=== PATIENT | female | born 2000 | race Caucasian/White ===

== ENCOUNTER 2021-12-14 08:19 | Outpatient (REF) | payer BC, SELFPAY ==
[2021-12-14 11:33] LABS: MANUAL DIFF FLAG NO
[2021-12-14 11:43] LABS: Basophils Absolute Auto 0.1 X10*3/uL (0.0-0.2); Basophils Percent Auto 0.7 % (0-2); Eosinophils Absolute Auto 0.3 X10*3/uL (0.0-0.4); Eosinophils Percent Auto 4.5 % (0-4); Hematocrit 40.8 % (37.0-47.0); Hemoglobin 13.7 g/dl (12.0-16.0); Imm Gran Abs Auto 0.02 X10*3/uL (0.00-0.03); Imm Gran Pct Auto 0.3 % (0.0-0.4); Lymphocytes Absolute Auto 2.2 X10*3/uL (1.2-4.9); Mean Corpuscular HGB Conc 33.6 g/dl (31.0-35.0); Mean Corpuscular Hemoglobin 30.4 pg (27.0-33.0); Mean Corpuscular Volume 90.5 fL (80.0-98.0); Mean Platelet Volume 10.7 fL (9.4-12.3); Monocytes Absolute Auto 0.7 X10*3/uL (0.1-1.2); Monocytes Percent Auto 9.1 % (2-11); Neutrophils Absolute Auto 3.9 x10*3/uL (2.0-8.3); Neutrophils Percent Auto 54.4 % (45-73); Platelet Count 337 X10*3/uL (160-400); Red Blood Count 4.51 X10*6/uL (4.20-5.50); Red Cell Distribution Width 12.1 % (11.0-16.0); White Blood Count 7.2 X10*3/uL (4.8-10.8)
[2021-12-14 12:11] LABS: TSH reflex Free T4 5.66 uIU/mL (0.32-4.0)
[2021-12-14 12:14] LABS: Alanine Aminotransferase 15 U/L (0-31); Alkaline Phosphatase 45 U/L (39-117); Anion Gap 12 (12-20); Aspartate Amino Transferase 18 U/L (5-31); Bilirubin Total 0.6 mg/dL (0.0-1.0); Blood Urea Nitrogen 15 mg/dL (9-16); Calcium 8.9 mg/dL (8.4-10.2); Carbon Dioxide 26 mmol/L (22-29); Chloride 106 mmol/L (96-108); Cholesterol 195 mg/dL; Estimated Glomerular Filt Rate > 60; Glucose Fasting 93 mg/dL (60-99); HDL Cholesterol 56 mg/dL; LDL Cholesterol Calculated 125 mg/dl; Sodium 140 mmol/L (135-145); Total Protein 6.9 g/dL (6.5-8.0); Triglycerides 71 mg/dL
[2021-12-14 12:57] LABS: Free T4 (Free Thyroxine) 0.97 ng/dL (0.71-1.85)
== END 2021-12-14 08:20 | disposition home or self-care (01) ==
LOC: HO.HMGCLDS 08:19
PROVIDERS: PCP Internal Medicine; Visit Provider Internal Medicine
DX: Z00.00 Encounter for general adult medical examination without abnormal findings (principal)
CPT/HCPCS: 36415; 80053; 80061; 84439; 84443; 85025

== ENCOUNTER 2022-02-22 09:29 | Outpatient (REF) | payer BC, SELFPAY ==
[2022-02-22 11:16] LABS: Syphilis Screen Nonreactive (Nonreactive)
[2022-02-22 11:27] LABS: HBc Num1 0.08 S/CO (0.00-0.79); Hepatitis B Core Antibody Nonreactive (Nonreactive); ~HepC Num1 0.15 S/CO (0.00-0.79); ~Hepatitis C Antibody Nonreactive (Nonreactive)
[2022-02-22 12:01] LABS: HIV AB/AG Nonreactive (Nonreactive); HIV Num 1 0.07 S/CO (0.00-0.99)
[2022-02-22 13:50] LABS: CT PCR NOT DETECTED (Not Detect.); NG PCR NOT DETECTED (Not Detect.)
== END 2022-02-22 09:30 | disposition home or self-care (01) ==
LOC: HO.LNP 09:29
PROVIDERS: Visit Provider Advanced Practice Midwife
DX: Z01.419 Encounter for gynecological examination (general) (routine) without abnormal findings (principal); Z11.3 Encounter for screening for infections with a predominantly sexual mode of transmission; Z20.2 Contact with and (suspected) exposure to infections with a predominantly sexual mode of transmission
CPT/HCPCS: 86704; 86780; 86803; 87389; 87491; 87591; 88142

== ENCOUNTER 2022-12-15 10:18 | Outpatient (AMB) | payer BC, SELFPAY ==
[2022-12-15 10:56] VITALS: BP 106/74; PULSE 70; O2SAT 95; BMI 28.3
--- NOTE | 2022-12-15 10:56 | MHC.PC.OV ---
Vital Signs 12/15/22 10:56 Height 5 ft 2 in Weight 155 lb BMI 28.3 BP 106/74 Blood Pressure Location Lt brachial Position Sitting Pulse 70 Pulse Source Pulse Oximeter Pulse Oximetry (%) 95 Oxygen Delivery Method Room Air Intake Visit Reasons: PE Intake Note: Pt is here today for PE. Allergies No Known Allergies Allergy (Verified 12/15/22 10:57) Medication List - Last Reconciled 12/15/22 by Bing Woods MD levonorgestrel-ethinyl estrad 0.1-20 mg-mcg (Sronyx) 1 tab PO DAILY Tobacco use date assessed: 12/15/22 Dental Screening Dental Screen Date: 12/15/22 Did you have a dental visit in the last 12 months?: Yes Did you have a dental problem in the last 6 months where you did not have access to dental care?: No Was dental information given to patient?: Patient has dentist HPI PE HPI Details Pt presents for PE. Pt c/o MACK on and off usually once a month. Patient works different shifts and occasionally does not get in the sleep. Patient used to have headaches at least weekly but they became less frequent since patient started taking oral contraceptive 3 months without an interruption PFSH Family History Other Adopted person Social History Household Members Other:: lives with parents, works for [employer] Housing: House Alcohol intake: current Alcohol intake frequency: 0-2 drinks per day Patient Tobacco Use Status: Never used Tobacco e-Cigarette/Vaping Use: Never Used service: No Current occupational status: employed Current occupation: [employer] Sexual orientation: Straight/Heterosexual Gender identity: Female Cognitive needs: No Hearing needs: No Vision needs: Yes Female Reproductive History Menstrual Age of Menarche: 10 Questionnaire PHQ-9 Over the last 2 weeks, how often have you been bothered by any of the following problems? 1. Little interest or pleasure in doing things: not at all 2. Feeling down, depressed, or hopeless: several days 3. Trouble falling or staying asleep, or sleeping too much: several days 4. Feeling tired or having little energy: several days 5. Poor appetite or overeating: not at all 6. Feeling bad about yourself - or that you are a failure or have let yourself or your family down: not at all 7. Trouble concentrating on things, such as reading the newspaper or watching television: not at all 8. Moving or speaking so slowly that other people could have noticed. Or the opposite - being so fidgety or restless that you have been moving around a lot more than usual: not at all 9. Thoughts that you would be better off or of hurting yourself in some way: not at all Total score: 3 Depression Screening Interpretation: Negative Source: Developed by Drs. Tim Michel, Sarah Meng, Justice Valerio and colleagues, with an educational raudel from [employer]. Thrive Questionnaire Date Thrive assessed: 12/15/22 I am a: Patient What is your living situation today?: I have a steady place to live Within the past 12 months, did the food you bought not last and you didn't have the money to get more?: Never true Within the past 12 months, did you worry whether your food would run out before you got money to buy more?: Never true Do you have trouble paying for medicines?: No Do you have trouble getting transportation to medical appointments?: No Do you have trouble paying your heating and electricity bill?: No Do you have trouble taking care of your child, family member or friend?: No Do you have trouble with day-to-day activities such as bathing, preparing meals, shopping, managing finances, etc.?: No Are you currently unemployed and looking for a job?: No Are you interested in more education?: No Please select the resources that you would like help with: None Currently or been in a relationship where the following occur: no concerns reported AUDIT C Alcohol Use Questionnaire (AUDIT-C) 1. How often do you have a drink containing alcohol?: Monthly or less 2. How many drinks containing alcohol do you have on a typical day when you are drinking?: 1 or 2 3. How often do you have six or more drinks on one occasion?: Never Total Score: 1 CHIQUIS-7 AMB Questionnaire CHIQUIS-7 Date CHIQUIS - 7 assessed: 12/15/22 Feeling nervous, anxious, or on edge: 2 = More than half the days Not being able to stop or control worryin = Several days Worrying too much about different things: 2 = More than half the days Trouble relaxin = Several days Being so restless that it is hard to sit still: 1 = Several days Becoming easily annoyed or irritable: 1 = Several days Feeling afraid as if something awful might happen: 0 = Not at all Total CHIQUIS-7 score (0-4 normal; 5-9 mild; 10-14 moderate; 15-21 severe): 8 Source: Developed by Drs. Tim Michel, Sarah Meng, Justice Valerio and colleagues, with an educational raudel from [employer]. Review of Systems Const All systems reviewed & are unremarkable except as noted in HPI and below Reports no additional complaints Eyes Reports no additional complaints ENT Reports no additional complaints Card Reports no additional complaints Resp Reports no additional complaints GI Reports no additional complaints Physical exam (Primary Care) Vital Signs: Last Vital Signs Pulse 70 12/15/22 10:56 BP 106/74 12/15/22 10:56 Pulse Ox 95 12/15/22 10:56 Oxygen Delivery Method Room Air 12/15/22 10:56 BMI result Body Mass Index 28.3 Tobacco/Smoking Status: Tobacco use Status Tobacco use date assessed 12/15/22 12/15/22 11:00 Patient Tobacco Use Status Never used Tobacco 12/15/22 11:00 e-Cigarette/Vaping Use Never Used 12/15/22 11:00 PHQ-9: PHQ-9 Score PHQ-9: Total score 3 12/15/22 11:14 Depression Screening Interpretation: Negative Thrive Assessment: Date of Thrive Assessment Date Thrive assessed 12/15/22 12/15/22 11:00 Currently or been in a relationship where the following occur: no concerns reported Const General: no acute distress HENMT Head: Yes normal to inspection Face and sinus: Yes normal facial exam Throat: Yes posterior oropharynx normal Eyes General: appearance normal, both eyes and all related structures Neck Neck: Yes no lymphadenopathy and Yes supple Resp Effort & Inspection: normal respiratory effort Auscultation: clear to auscultation bilaterally Cardio Rhythm: regular rhythm Heart sounds: S1 normal heart sound present and S2 normal heart sound present GI Inspection: Yes normal to inspection Palpation (GI): Soft to palpation Percussion: Yes normal to percussion Auscultation: normal bowel sounds Assessment and Plan Assessment & Plan (1) Hypothyroidism: Code(s): E03.9 - Hypothyroidism, unspecified Plan: check TSH/ and obtain thyroid us (2) Annual physical exam: Code(s): Z00.00 - Encounter for general adult medical examination without abnormal findings Plan: Well-balanced diet regular physical activity discussed with the patient (3) Thyroid antibody positive: Code(s): R76.8 - Other specified abnormal immunological findings in serum (4) Chronic headache: Code(s): R51.9 - Headache, unspecified; G89.29 - Other chronic pain Plan: Stress management discussed with the patient. She will try Imitrex. Return for physical in 1 year or p.r.n. Orders: Orders TSH reflex Free T4 Today E03.9 - Hypothyroidism, unspecified, Z00.00 - Encounter for general adult medical examination without abnormal findings Complete Blood Count Auto Diff Today E03.9 - Hypothyroidism, unspecified, Z00.00 - Encounter for general adult medical examination without abnormal findings Comprehensive [place]. Panel Fast Today E03.9 - Hypothyroidism, unspecified, Z00.00 - Encounter for general adult medical examination without abnormal findings Lipid Panel Today E03.9 - Hypothyroidism, unspecified, Z00.00 - Encounter for general adult medical examination without abnormal findings US thyroid Today E03.9 - Hypothyroidism, unspecified Medications: New sumatriptan succinate take 1 tab at onset of headache; if no relief may repeat 1 tab after at least 2 hrs; max = 4 tabs/24 hr PO 10 tabs 0RF Coding Level of Care Code Est Pt Prev Care 18-39y(54704) Diagnoses Hypothyroidism E03.9 Annual physical exam Z00.00 Thyroid antibody positive R76.8 Chronic headache R51.9; G89.29
== END 2022-12-15 11:30 | disposition home or self-care (01) ==
PROVIDERS: Visit Provider Internal Medicine
DX: E03.9 Hypothyroidism, unspecified (principal); Z00.00 Encounter for general adult medical examination without abnormal findings; R76.8 Other specified abnormal immunological findings in serum; R51.9 Headache, unspecified; G89.29 Other chronic pain
CPT/HCPCS: 99395

== ENCOUNTER 2022-12-15 11:31 | Outpatient (REF) | payer BC, SELFPAY ==
[2022-12-15 13:16] LABS: MANUAL DIFF FLAG NO
[2022-12-15 13:29] LABS: Basophils Percent Auto 0.5 % (0-2); Eosinophils Absolute Auto 0.3 X10*3/uL (0.0-0.4); Eosinophils Percent Auto 2.9 % (0-4); Hematocrit 42.6 % (37.0-47.0); Hemoglobin 14.1 g/dl (12.0-16.0); Imm Gran Abs Auto 0.03 X10*3/uL (0.00-0.03); Imm Gran Pct Auto 0.3 % (0.0-0.4); Lymphocytes Percent Auto 22.6 % (20-40); Mean Corpuscular HGB Conc 33.1 g/dl (31.0-35.0); Mean Corpuscular Hemoglobin 29.8 pg (27.0-33.0); Mean Corpuscular Volume 90.1 fL (80.0-98.0); Mean Platelet Volume 10.3 fL (9.4-12.3); Monocytes Absolute Auto 0.6 X10*3/uL (0.1-1.2); Monocytes Percent Auto 6.7 % (2-11); Neutrophils Absolute Auto 5.8 x10*3/uL (2.0-8.3); Platelet Count 372 X10*3/uL (160-400); Red Blood Count 4.73 X10*6/uL (4.20-5.50); Red Cell Distribution Width 12.2 % (11.0-16.0); White Blood Count 8.7 X10*3/uL (4.8-10.8)
[2022-12-15 13:49] LABS: Alanine Aminotransferase 12 U/L (0-31); Albumin Level 4.1 g/dL (3.5-5.0); Alkaline Phosphatase 46 U/L (39-117); Anion Gap 10 (12-20); Aspartate Amino Transferase 16 U/L (5-31); Bilirubin Total 0.7 mg/dL (0.0-1.0); Blood Urea Nitrogen 10 mg/dL (9-16); Calcium 9.8 mg/dL (8.4-10.2); Carbon Dioxide 25 mmol/L (22-29); Chloride 107 mmol/L (96-108); Cholesterol 214 mg/dL; Estimated Glomerular Filt Rate > 60; Glucose Fasting 77 mg/dL (60-99); HDL Cholesterol 54 mg/dL; LDL Cholesterol Calculated 141 mg/dl; Sodium 138 mmol/L (135-145); Total Protein 7.5 g/dL (6.5-8.0); Triglycerides 95 mg/dL
[2022-12-15 14:06] LABS: TSH reflex Free T4 3.51 uIU/mL (0.32-4.0)
== END 2022-12-15 11:32 | disposition home or self-care (01) ==
LOC: HO.HMGCLDS 11:31
PROVIDERS: PCP Internal Medicine; Visit Provider Internal Medicine
DX: Z00.00 Encounter for general adult medical examination without abnormal findings (principal); E03.9 Hypothyroidism, unspecified
CPT/HCPCS: 36415; 80053; 80061; 84443; 85025

== ENCOUNTER 2022-12-28 10:30 | Outpatient (REF) | payer BC, SELFPAY ==
--- NOTE | ~2022-12-28 | US_ITS ---
EXAMINATION: US THYROID CLINICAL INFORMATION: Hypothyroidism, unspecified. COMPARISON: None available. TECHNIQUE: Linear transducer grayscale and color Doppler examination with attention to the region of the thyroid. FINDINGS: SIZE: Measurements of the thyroid lobes and nodules are given in sagittal, anteroposterior and transverse dimensions respectively. Right Thyroid Lobe: 5.0 x 1.7 x 1.4 cm, volume 6.2 mL. Parenchyma: The gland echotexture is homogeneous. Thyroid vascularity is normal. Left Thyroid Lobe: 4.9 x 1.2 x 1.6 cm, volume 4.9 mL. Parenchyma: The gland echotexture is homogeneous. Thyroid vascularity is normal. Isthmus: 0.3 cm in maximum AP dimension. No focal thyroid nodule is seen. NODES: No lymphadenopathy is seen in the tissue surrounding the thyroid gland. US/US thyroid IMPRESSION: Unremarkable examination. ACR TI-RADS RECOMMENDATION REFERENCE: Ultrasound-guided fine-needle aspiration, followup ultrasound, no further follow up. * TR1 (0 point) and TR2 (2 points): No FNA or follow up. * TR3 (3 points): FNA if more than or equal to 2.5 cm in maximum dimension, followup ultrasound in 1, 3 and 5 years if 1.5 to 2.4 cm in maximum dimension. * TR4 (4-6 points): FNA if more than or equal to 1.5 cm in maximum dimension, followup ultrasound in 1, 2, 3 and 5 years if 1 to 1.4 cm in maximum dimension. * TR5 (more than or equal to 7 points): FNA if more than or equal to 1 cm in maximum dimension, followup ultrasound every year for 5 years if 0.5 to 0.9 cm in maximum dimension. * TR3, TR4 or TR5 nodules that are below the size threshold for followup receive no follow up.
== END 2022-12-28 10:31 | disposition home or self-care (01) ==
LOC: HO.HMGCX 10:30
PROVIDERS: PCP Internal Medicine; Visit Provider Internal Medicine
DX: E03.9 Hypothyroidism, unspecified (principal)
CPT/HCPCS: 76536

== ENCOUNTER 2023-03-15 08:20 | Outpatient (AMB) | payer BC, SELFPAY ==
--- NOTE | 2023-03-15 08:22 | MHC.OFFVIS ---
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 Helicopter Dispatcher: Helicopter Dispatcher Present ([place]) Allergies No Known Allergies Allergy (Verified 03/15/23 08:23) Is last menstrual period known: Yes Last menstrual period: 02/11/23 HPI HPI Comments History of Present Illness Details She is a premenopausal woman presenting for annual examination. 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 She tries to eat healthy and stays active with exercise. Currently on BC. She reports breakthrough bleeding x 2wks, then had her withdrawal bleed week. No late or missed pills. She has complaints of headaches, that she has been seeing her PCP about. She was prescribed Sumatriptan. She has not started the medication. She thinks that the headaches can be stress related and or come from her holding tension while sleeping. Denies any pelvic pain, dysuria, or discharge. 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 She denies vaginal itching and irritation. STI/STD screening offered; she accepts. Denies family history of breast, ovarian or colon cancer. Last pap smear 02/22/2023, was negative. She denies any contraindications to control such as: migraines with aura, history of DVT or pulmonary emboli, high blood pressure, liver disease, thrombolic disorders, Lupus, +DOMENIC, or smoking. [facility] Medical History Chronic headache Family History Other Adopted person Social History Household Members Other:: lives with parents, works for [employer] Housing: House Alcohol intake: current Alcohol intake frequency: 0-2 drinks per day Patient Tobacco Use Status: Never used Tobacco e-Cigarette/Vaping Use: Never Used service: No Current occupational status: employed Current occupation: [employer] Sexual orientation: Straight/Heterosexual Gender identity: Female Cognitive needs: No Hearing needs: No Vision needs: Yes Female Reproductive History Menstrual Age of Menarche: 10 Date of last menstrual period: 02/11/23 control method: pills Total pregnancies: 0 Date of last pap smear: 02/22/22 (neg) Review of Systems Const All systems reviewed & are unremarkable except as noted in HPI and below Reports as per HPI Eyes Reports no additional complaints ENT Reports no additional complaints Card Reports no additional complaints Resp Reports no additional complaints GI Reports as per HPI and Reports no additional complaints Reports as per HPI Musc Reports no additional complaints Skin/Breast Reports as per HPI Neuro Reports no additional complaints Psych Reports no additional complaints Endo Reports no additional complaints Royal/Lymph Reports no additional complaints Aller/Immun Reports no additional complaints Physical Exam Vital Signs: Last Vital Signs BP 106/66 03/15/23 08:23 BMI result Body Mass Index 30.2 Const General: cooperative, healthy appearing, no acute distress, well developed and alert Orientation/consciousness: patient oriented x3 HEENT Head: Yes normal to inspection Eyes General: appearance normal, both eyes and all related structures Neck Neck: Yes normal visual inspection Thyroid: Thyroid normal Chest Chest palpation & inspection: normal inspection of the chest and other (no puckering, dimpling, peau de orange, retraction, discharge, masses) Breast/axilla inspection: normal inspection of the breasts Breast/axilla palpation: normal palpation of the breasts Resp Effort & Inspection: normal respiratory effort GI Inspection: Yes normal to inspection Palpation (GI): Soft to palpation Rectal Exam - Female: deferred General: Yes bladder normal to palpation External Female Exam: normal external appearance and normal appearance of the urethra Speculum Exam - Vagina: normal appearance of the vagina, normal palpation and other (white discharge) Speculum Exam - Cervix: normal appearance of the cervix and normal palpation Bimanual exam- vagina & uterus: normal bimanual exam, normal palpation, uterine size normal, bladder normal to palpation, normal palpation and non-tender Bimanual Exam- Adnexa, other: no masses Skin General skin exam: no rashes or lesions noted Rashes: no rashes Neuro General: patient oriented x3 Cognition (Neuro): normal cognition Extrem General: Yes normal to inspection Psych Attitude: cooperative Thought process: Normal thought process present Assessment & Plan Assessment & Plan (1) Encounter for gynecological examination: Code(s): Z01.419 - Encounter for gynecological examination (general) (routine) without abnormal findings Plan: Discussed: Current recommendations for pap smears per ASCCP guidelines. Breast awareness and periodic self breast exams. Maintaining a healthy lifestyle including a well balanced diet and routine exercise. Encouraged condom use for STD and prevention. Discussed BTB, continue same pill for now and monitor bleeding, if reoccurs, call office for further evaluation. Warnings: go to ER if and loss of vision/blindness, severe headache, chest pain or difficulty breathing, severe abdominal pain, or any pain or swelling in an extremity. All of her questions and concerns were addressed to the best of my ability She will return in one year for AG. (2) Breakthrough bleeding: Code(s): N92.1 - Excessive and frequent menstruation with irregular cycle Plan: BV testing and GC/CT panel done today. Awaiting results; will treat accordingly if necessary. (3) Counseling for control, oral contraceptives: Code(s): Z30.09 - Encounter for other general counseling and advice on contraception Orders: Orders CT NG by PCR Today N92.1 - Excessive and frequent menstruation with irregular cycle Bacterial Vaginosis Panel Today N92.1 - Excessive and frequent menstruation with irregular cycle Medications: Refilled levonorgestrel-ethinyl estrad 0.1-20 mg-mcg (Sronyx) Take one pill daily, no placebo week, refill of previous rx 1 tab PO DAILY 112 tabs 4RF Coding Level of Care Code Est Pt Prev Care 18-39y(19358) Diagnoses Encounter for gynecological examination Z01.419 Breakthrough bleeding N92.1 Counseling for control, oral contraceptives Z30.09
[2023-03-15 08:23] VITALS: BP 106/66; BMI 30.2
== END 2023-03-15 08:56 | disposition home or self-care (01) ==
PROVIDERS: Visit Provider Advanced Practice Midwife
DX: Z01.419 Encounter for gynecological examination (general) (routine) without abnormal findings (principal); N92.1 Excessive and frequent menstruation with irregular cycle; Z30.09 Encounter for other general counseling and advice on contraception
CPT/HCPCS: 99395

== ENCOUNTER 2023-03-15 08:20 | Outpatient (REF) | payer BC, SELFPAY ==
[2023-03-15 14:07] LABS: CT PCR NOT DETECTED (Not Detect.); NG PCR NOT DETECTED (Not Detect.)
[2023-03-16 08:57] LABS: BV Int Neg Control Negative (Negative); BV Int Pos Control Positive (Positive)
== END 2023-03-15 08:21 | disposition home or self-care (01) ==
LOC: HO.LNP 08:20
PROVIDERS: Visit Provider Advanced Practice Midwife
DX: Z01.411 Encounter for gynecological examination (general) (routine) with abnormal findings (principal); N92.1 Excessive and frequent menstruation with irregular cycle; Z20.2 Contact with and (suspected) exposure to infections with a predominantly sexual mode of transmission
CPT/HCPCS: 0353U; 87480; 87510; 87660

== ENCOUNTER 2023-03-15 08:53 | Outpatient (REF) | payer BC, SELFPAY | END 2023-03-15 08:54 | disposition home or self-care (01) | LOC: HO.LAB 08:53 | PROVIDERS: Visit Provider Advanced Practice Midwife | DX: Z13.89 Encounter for screening for other disorder (principal) ==

== ENCOUNTER 2023-12-25 08:32 | Outpatient (AMB) | payer BC, SELFPAY ==
[2023-12-25 08:34] VITALS: BP 102/74; PULSE 87; O2SAT 99; BMI 29.3
--- NOTE | 2023-12-25 08:34 | A.OFFPC_ITS ---
Vital Signs 12/25/23 08:34 Height 5 ft 2 in Weight 160 lb BMI 29.3 BP 102/74 Blood Pressure Location Lt brachial Position Sitting Pulse 87 Pulse Source Pulse Oximeter Pulse Oximetry (%) 99 Oxygen Delivery Method Room Air Intake Visit Reasons: PE Intake Note: Pt is here today for PE. Allergies No Known Allergies Allergy (Verified 12/25/23 08:35) Medication List - Last Reconciled 12/25/23 by Bing Woods MD levonorgestrel-ethinyl estrad 0.1-20 mg-mcg (Sronyx) 1 tab PO DAILY sumatriptan succinate take 1 tab at onset of headache; if no relief may repeat 1 tab after at least 2 hrs; max = 4 tabs/24 hr PO Tobacco use date assessed: 12/25/23 Dental Screening Dental Screen Date: 12/25/23 Did you have a dental visit in the last 12 months?: Yes Did you have a dental problem in the last 6 months where you did not have access to dental care?: No Was dental information given to patient?: Patient has dentist HPI PE HPI Details Pt presents for PE. She reports chronic right buttock pain on and off for the last 2 years. She got engaged and is planning wedding in 2 years and bought a house with her fiance. Patient reports feeling more anxious but has good coping skills. [facility] Medical History Chronic headache Surgical History No pertinent past surgical history Family History Other Adopted person Social History Household Members Other:: lives with parents, works for [employer] Housing: House Alcohol intake: current Alcohol intake frequency: 0-2 drinks per day Patient Tobacco Use Status: Never used Tobacco e-Cigarette/Vaping Use: Never Used service: No Current occupational status: employed Current occupation: [employer] Sexual orientation: Straight/Heterosexual Gender identity: Female Cognitive needs: No Hearing needs: No Vision needs: Yes Female Reproductive History Menstrual Age of Menarche: 10 Questionnaire PHQ-9 Over the last 2 weeks, how often have you been bothered by any of the following problems? 1. Little interest or pleasure in doing things: not at all 2. Feeling down, depressed, or hopeless: several days 3. Trouble falling or staying asleep, or sleeping too much: several days 4. Feeling tired or having little energy: several days 5. Poor appetite or overeating: not at all 6. Feeling bad about yourself - or that you are a failure or have let yourself or your family down: not at all 7. Trouble concentrating on things, such as reading the newspaper or watching television: not at all 8. Moving or speaking so slowly that other people could have noticed. Or the opposite - being so fidgety or restless that you have been moving around a lot more than usual: not at all 9. Thoughts that you would be better off or of hurting yourself in some way: not at all Total score: 3 Depression Screening Interpretation: Negative Depression Screening Done: Yes 89315 - PHQ-9 Billing: Yes Source: Developed by Drs. Tim Michel, Sarah Meng, Justice Valerio and colleagues, with an educational raudel from [employer]. Thrive Questionnaire Date Thrive assessed: 12/25/23 I am a: Patient What is your living situation today?: I have a steady place to live Within the past 12 months, did the food you bought not last and you didn't have the money to get more?: Never true Within the past 12 months, did you worry whether your food would run out before you got money to buy more?: Never true Do you have trouble paying for medicines?: No Do you have trouble getting transportation to medical appointments?: No Do you have trouble paying your heating and electricity bill?: No Do you have trouble taking care of your child, family member or friend?: No Do you have trouble with day-to-day activities such as bathing, preparing meals, shopping, managing finances, etc.?: No Are you currently unemployed and looking for a job?: No Are you interested in more education?: No Please select the resources that you would like help with: None Currently or been in a relationship where the following occur: No concerns reported THRIVE Score: 0 AUDIT C Alcohol Use Questionnaire (AUDIT-C) 1. How often do you have a drink containing alcohol?: Monthly or less 2. How many drinks containing alcohol do you have on a typical day when you are drinking?: 1 or 2 Total Score: 1 CHIQUSI-7 AMB Questionnaire CHIQUIS-7 Date CHIQUIS - 7 assessed: 12/25/23 Feeling nervous, anxious, or on edge: 1 = Several days Not being able to stop or control worryin = Several days Worrying too much about different things: 1 = Several days Trouble relaxin = Several days Being so restless that it is hard to sit still: 1 = Several days Becoming easily annoyed or irritable: 1 = Several days Feeling afraid as if something awful might happen: 1 = Several days Total CHIQUIS-7 score (0-4 normal; 5-9 mild; 10-14 moderate; 15-21 severe): 7 Source: Developed by Drs. Tim Michel, Sarah Meng, Justice Valerio and colleagues, with an educational raudel from [employer]. CHIQUIS-7 Assessment Billing CHIQUIS-7 Assessment Tool: CHIQUIS-7 Assessment 11360 Review of Systems Const All systems reviewed & are unremarkable except as noted in HPI and below Reports no additional complaints Eyes Reports no additional complaints ENT Reports no additional complaints Card Reports no additional complaints Resp Reports no additional complaints GI Reports no additional complaints Reports no additional complaints Physical exam (Primary Care) Vital Signs: Last Vital Signs Pulse 87 12/25/23 08:34 BP 102/74 12/25/23 08:34 Pulse Ox 99 12/25/23 08:34 Oxygen Delivery Method Room Air 12/25/23 08:34 BMI result Body Mass Index 29.3 Tobacco/Smoking Status: Tobacco use Status Tobacco use date assessed 12/25/23 12/25/23 08:38 Patient Tobacco Use Status Never used Tobacco 12/25/23 08:38 e-Cigarette/Vaping Use Never Used 12/25/23 08:38 PHQ-9: PHQ-9 Score PHQ-9: Total score 3 12/25/23 09:16 Depression Screening Interpretation: Negative Thrive Assessment: Date of Thrive Assessment Date Thrive assessed 12/25/23 12/25/23 08:38 Currently or been in a relationship where the following occur: No concerns reported Const General: no acute distress HENMT Ears: hearing grossly normal bilaterally Face and sinus: Yes normal facial exam Mouth: Normal oral and palatal mucosa present Throat: Yes posterior oropharynx normal Eyes General: appearance normal, both eyes and all related structures Pupils: Equal, round and reactive pupils present Neck Neck: Yes no lymphadenopathy and Yes supple Resp Effort & Inspection: normal respiratory effort Auscultation: clear to auscultation bilaterally Cardio Rhythm: regular rhythm Heart sounds: S1 normal heart sound present and S2 normal heart sound present GI Inspection: Yes normal to inspection Palpation (GI): Soft to palpation Percussion: Yes normal to percussion Auscultation: normal bowel sounds Back/Spine/Pelvis Thoracic/Lumbar Spine: thoracic and lumbar spine normal to inspection, Lasegue's sign negative and No lumbar spinal tenderness Neuro Cranial nerves: Yes Equal, round and reactive pupils present Assessment and Plan Assessment & Plan (1) Annual physical exam: Code(s): Z00.00 - Encounter for general adult medical examination without abnormal findings Plan: Well-balanced diet regular physical activity discussed with the patient. She will have a fasting blood work today (2) Hypothyroidism: Code(s): E03.9 - Hypothyroidism, unspecified Plan: Monitor TSH for borderline hypothyroid (3) Hyperlipidemia: Code(s): E78.5 - Hyperlipidemia, unspecified Plan: Low-cholesterol diet discussed with the patient. (4) Piriformis syndrome of right side: Code(s): G57.01 - Lesion of sciatic nerve, right lower limb Plan: Stretching exercises given to the patient PT was recommended but patient declined. Orders: Orders Lipid Panel Today Z00.00 - Encounter for general adult medical examination with out abnormal findings TSH reflex Free T4 Today R76.8 - Other specified abnormal immunological findings in serum TSH reflex Free T4 1 Year E03.9 - Hypothyroidism, unspecified, E78.5 - Hyperlipidemia, unspecified, Z00.00 - Encounter for general adult medical examination without abnormal findings Lipid Panel 1 Year E03.9 - Hypothyroidism, unspecified, E78.5 - Hyperlipidemia, unspecified, Z00.00 - Encounter for general adult medical examination without abnormal findings Complete Blood Count Auto Diff 1 Year E03.9 - Hypothyroidism, unspecified, E78.5 - Hyperlipidemia, unspecified, Z00.00 - Encounter for general adult medical examination without abnormal findings UA w Microscopic 1 Year E03.9 - Hypothyroidism, unspecified, E78.5 - Hyperlipidemia, unspecified, Z00.00 - Encounter for general adult medical examination without abnormal findings Comprehensive [place]. Panel Fast Today Z00.00 - Encounter for general adult medical examination without abnormal findings Comprehensive [place]. Panel Fast 1 Year E03.9 - Hypothyroidism, unspecified, E78.5 - Hyperlipidemia, unspecified, Z00.00 - Encounter for general adult medical examination without abnormal findings Coding Level of Care Code Est Pt Prev Care 18-39y(62013) Diagnoses Annual physical exam Z00.00 Hypothyroidism E03.9 Hyperlipidemia E78.5 Piriformis syndrome of right side G57.01 Additional Codes CHIQUIS-7 Assessment Billing - CHIQUIS-7 Assessment Tool: CHIQUIS-7 Assessment 63626 ([id number])
== END 2023-12-25 09:32 | disposition home or self-care (01) ==
PROVIDERS: PCP Internal Medicine; Visit Provider Internal Medicine
DX: Z00.00 Encounter for general adult medical examination without abnormal findings (principal); E03.9 Hypothyroidism, unspecified; E78.5 Hyperlipidemia, unspecified; G57.01 Lesion of sciatic nerve, right lower limb
CPT/HCPCS: 99395

== ENCOUNTER 2023-12-25 09:34 | Outpatient (REF) | payer BC, SELFPAY ==
[2023-12-25 11:20] LABS: Alanine Aminotransferase 20 U/L (0-31); Albumin Level 4.2 g/dL (3.5-5.0); Alkaline Phosphatase 47 U/L (39-117); Anion Gap 13 (12-20); Aspartate Amino Transferase 19 U/L (5-31); Bilirubin Total 0.7 mg/dL (0.0-1.0); Blood Urea Nitrogen 15 mg/dL (9-16); Calcium 10.1 mg/dL (8.4-10.2); Carbon Dioxide 24 mmol/L (22-29); Chloride 106 mmol/L (96-108); Cholesterol 192 mg/dL (<200); Estimated Glomerular Filt Rate > 60; Glucose Fasting 84 mg/dL (60-99); HDL Cholesterol 57 mg/dL (>40); LDL Cholesterol Calculated 123 mg/dL (<100); Potassium 3.8 mmol/L (3.3-5.1); Sodium 139 mmol/L (135-145); Total Protein 7.3 g/dL (6.5-8.0); Triglycerides 60 mg/dL (<150)
== END 2023-12-25 09:35 | disposition home or self-care (01) ==
LOC: HO.HMGCLDS 09:34
PROVIDERS: PCP Internal Medicine; Visit Provider Internal Medicine
DX: Z00.00 Encounter for general adult medical examination without abnormal findings (principal); R76.8 Other specified abnormal immunological findings in serum
CPT/HCPCS: 36415; 80053; 80061; 84443

== ENCOUNTER 2024-03-25 08:49 | Outpatient (AMB) | payer BC, SELFPAY ==
[2024-03-25 09:04] VITALS: BP 108/76; BMI 30.6
--- NOTE | 2024-03-25 09:04 | MHC.OFFVIS ---
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 Doing well with concerns. Engaged, 01/2026. Doing well on her control no migraines with this brand. Does not take sumatriptan since the change. She denies any contraindications to control such as: migraines with aura, history of DVT or pulmonary emboli, high blood pressure, liver disease, thrombolic disorders, Lupus, +DOMENIC, breast cancer, or smoking. Regular monthly menses. Currently is sexually active. She denies vaginal itching and irritation. STI screening offered; she declines. She tries to eat healthy and stays active with exercise-walks. Patient is adopted. Last pap smear 2021, negative. [facility] Medical History Chronic headache Surgical History No pertinent past surgical history Family History Other Adopted person Social History Household Members Other:: lives with parents, works for [email or web address] Housing: House Alcohol intake: current Alcohol intake frequency: 0-2 drinks per day Patient Tobacco Use Status: Never used Tobacco e-Cigarette/Vaping Use: Never Used Patient : No service: No Current occupational status: employed Current occupation: [employer] Sexual orientation: Straight/Heterosexual Gender identity: Female Cognitive needs: No Hearing needs: No Vision needs: Yes Female Reproductive History Menstrual Age of Menarche: 10 Date of last menstrual period: 12/31/23 control method: pills Total pregnancies: 0 History of abnormal pap smear: No History of STI: No Review of Systems Const All systems reviewed & are unremarkable except as noted in HPI and below Reports as per HPI Eyes Reports no additional complaints ENT Reports no additional complaints Card Reports no additional complaints Resp Reports no additional complaints GI Reports as per HPI and Reports no additional complaints Reports as per HPI Musc Reports no additional complaints Skin/Breast Reports as per HPI Neuro Reports no additional complaints Psych Reports no additional complaints Endo Reports no additional complaints Royal/Lymph Reports no additional complaints Aller/Immun Reports no additional complaints Physical Exam Vital Signs: Last Vital Signs BP 108/76 03/25/24 09:04 BMI result Body Mass Index 30.6 Const General: cooperative, healthy appearing, no acute distress, well developed and alert Orientation/consciousness: patient oriented x3 HEENT Head: Yes normal to inspection Eyes General: appearance normal, both eyes and all related structures Neck Neck: Yes normal visual inspection Thyroid: Thyroid normal Chest Chest palpation & inspection: normal inspection of the chest and other (no puckering, dimpling, peau de orange, retraction, discharge, masses) Breast/axilla inspection: normal inspection of the breasts Breast/axilla palpation: normal palpation of the breasts Resp Effort & Inspection: normal respiratory effort GI Inspection: Yes normal to inspection Palpation (GI): Soft to palpation Rectal Exam - Female: deferred General: Yes bladder normal to palpation External Female Exam: normal external appearance and normal appearance of the urethra Speculum Exam - Vagina: normal appearance of the vagina, normal palpation and normal vaginal discharge Speculum Exam - Cervix: normal appearance of the cervix and normal palpation Bimanual exam- vagina & uterus: normal bimanual exam, normal palpation, uterine size normal, bladder normal to palpation, normal palpation and non-tender Bimanual Exam- Adnexa, other: no masses Skin General skin exam: no rashes or lesions noted Rashes: no rashes Neuro General: patient oriented x3 Cognition (Neuro): normal cognition Extrem General: Yes normal to inspection Psych Attitude: cooperative Thought process: Normal thought process present Assessment & Plan Assessment & Plan (1) Encounter for gynecological examination: Code(s): Z01.419 - Encounter for gynecological examination (general) (routine) without abnormal findings Category: Medical Plan Discussed: Current recommendations for pap smears per ASCCP guidelines. Breast awareness and periodic breast exams. Maintain a healthy lifestyle including a well balanced diet and routine exercise. Use condoms for STI and prevention. control hormone use warnings: go to ER if and loss of vision, blindness, severe headache, chest pain or difficulty breathing, severe abdominal pain, or any pain or swelling in an extremity. Patient verbalizes understanding and agrees to the plan of care. She was given opportunity to ask questions and all questions were answered to the best of my ability. 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 This note is constructed using voice recognition software. While every effort has been made to ensure accuracy, knitted goods shaper errors may have been included. Medications: Refilled levonorgestrel-ethinyl estrad 0.1-20 mg-mcg (Sronyx) Take one pill daily, no placebo week, refill of previous rx 1 tab PO DAILY 112 tabs 4RF Discontinued sumatriptan succinate Discontinued Reason: Patient Completed Course take 1 tab at onset of headache; if no relief may repeat 1 tab after at least 2 hrs; max = 4 tabs/24 hr PO 10 tabs 0RF Coding Level of Care Code Est Pt Prev Care 18-39y(85911) Diagnoses Encounter for gynecological examination Z01.419
== END 2024-03-25 10:03 | disposition home or self-care (01) ==
PROVIDERS: PCP Internal Medicine; Visit Provider Advanced Practice Midwife
DX: Z01.419 Encounter for gynecological examination (general) (routine) without abnormal findings (principal)
CPT/HCPCS: 99395

== ENCOUNTER 2024-04-03 13:46 | Outpatient (AMB) | payer BC, SELFPAY ==
--- NOTE | 2024-04-03 13:56 | AM.OFFWIN_ITS ---
Intake Vital Signs 04/03/24 13:59 Height 5 ft 2 in Weight 166 lb BMI 30.4 BP 122/78 Blood Pressure Location Rt brachial Position Sitting Pulse 82 Pulse Source Pulse Oximeter Pulse Oximetry (%) 99 Oxygen Delivery Method Room Air Intake Visit Reasons: EP-swollen & red face, rt foot cyst pinky toe Intake Note: Patient here for left foot swelling, red and has a bump in between pinky toe. She has been dealing w/Athletes foot for the past year now. Patient Tobacco Use Status: Never used Tobacco Allergies No Known Allergies Allergy (Verified 04/03/24 14:02) Do you need a note to return to daycare/school/sports/work: Yes HPI HPI Comments History of Present Illness Details History of Present Illness The patient is a 24-year-old female presenting with a blister with pus formation on her foot. The patient states that she noticed the blister last night, and by this morning, it had increased in size significantly. The surrounding area is erythematous, and she reports swelling of the toes, particularly noticeable on the top of the foot, causing significant pain upon walking. The patient has a history of recurrent Athlete's Foot, typically characterized by a small crack between the toes which she usually manages with topical antifungal ointment containing a 1% antifungal agent. She mentions applying the ointment twice daily for the past two days since these symptoms began. The sudden onset severity and characteristics of the blister differ from her past experiences with Athlete's Foot. There is no reported history of recent trauma or the use of new shoes. 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 Physical Exam General: Cooperative, healthy appearing, comfortable, no acute distress and well developed Orientation: Patient oriented x3 Limitations: No limitations Head: Normal to inspection Ears: Hearing grossly normal bilaterally Nose: Normal Nxternal nose present Face and sinus: ormal facial exam Eyes: Appearance normal, both eyes and all related structures Neck: Normal visual inspection and Yes full ROM Respiratory: Normal respiratory effort and able to speak in complete sentences. Clear to auscultation bilaterally Cardiovascular: Regular rate and rhythm. Normal S1 and S2 GI: Normal to inspection. Soft to palpation and nontender Skin: Redness on the top of the foot, toes swollen, blister with pus on the foot Neuro: Patient oriented x3 Extremities: Swollen foot with blister containing pus, redness, and tenderness noted [facility] Medical History Chronic headache Surgical History No pertinent past surgical history Family History Other Adopted person Social History Household Members Other:: lives with parents, works for [employer] Housing: House Alcohol intake: current Alcohol intake frequency: 0-2 drinks per day Patient Tobacco Use Status: Never used Tobacco e-Cigarette/Vaping Use: Never Used service: No Current occupational status: employed Current occupation: [email or web address] Sexual orientation: Straight/Heterosexual Gender identity: Female Cognitive needs: No Hearing needs: No Vision needs: Yes Female Reproductive History Menstrual Age of Menarche: 10 Review of Systems Const All systems reviewed & are unremarkable except as noted in HPI and below Physical Exam Vital Signs: Last Vital Signs Pulse 82 04/03/24 13:59 BP 122/78 04/03/24 13:59 Pulse Ox 99 04/03/24 13:59 Oxygen Delivery Method Room Air 04/03/24 13:59 BMI result Body Mass Index 30.4 Assessment & Plan Assessment & Plan (1) Infection of toe: Code(s): L08.9 - Local infection of the skin and subcutaneous tissue, unspecified Plan: Keflex sent to pharmacy. Recommended to follow up if no improvement in symptoms. Patient was informed and verbally consented to the use of an ambient scribe for clinic note documentation during this visit. (2) Tinea pedis, left: Code(s): B35.3 - Tinea pedis Plan: The plan is to continue topical antifungal therapy. Re-evaluate if symptoms persist or worsen, as further intervention may be needed. Coding Level of Care Code Est Pt Level 3 (36900) Diagnoses Infection of toe L08.9 Tinea pedis, left B35.3
[2024-04-03 13:59] VITALS: BP 122/78; PULSE 82; O2SAT 99; BMI 30.4
== END 2024-04-03 14:38 | disposition home or self-care (01) ==
PROVIDERS: PCP Internal Medicine; Visit Provider Physician Assistant
DX: L08.9 Local infection of the skin and subcutaneous tissue, unspecified (principal); B35.3 Tinea pedis

== ENCOUNTER 2024-06-23 14:03 | Outpatient (AMB) | payer BC, SELFPAY ==
--- NOTE | 2024-06-23 14:04 | MHC.PC.OV ---
Vital Signs 06/23/24 14:05 Height 5 ft 2 in Weight 169 lb BMI 30.9 BP 124/80 Blood Pressure Location Lt brachial Position Sitting Respiration 18 Pulse 94 Pulse Source Pulse Oximeter Temp 98.3 F Temp Source Oral Pulse Oximetry (%) 98 Oxygen Delivery Method Room Air Intake Visit Reasons: foot infection Intake Note: Pt is here today for a sick visit. Pt states that she was seen in a walk in back in March for L foot infection she was on 2 antibiotics already since then. Allergies No Known Allergies Allergy (Verified 06/23/24 14:11) Medication List - Last Reconciled 06/23/24 by Bing Woods MD ketoconazole 400 mg (2 x 200 mg) PO DAILY ketoconazole 2% 1 appl topical BID levonorgestrel-ethinyl estrad 0.1-20 mg-mcg (Sronyx) 1 tab PO DAILY Tobacco use date assessed: 06/23/24 Dental Screening Dental Screen Date: 06/23/24 Did you have a dental visit in the last 12 months?: Yes Did you have a dental problem in the last 6 months where you did not have access to dental care?: No Was dental information given to patient?: Patient has dentist HPI foot infection HPI Details Patient presents complaining of recurrent infection between the 5th and the 4th toe on the left foot. She has been wearing sneakers to work and reports her feet sweating a lot. Patient has been using [id number] antifungal powder and topical cream with only temporary relief. She was treated for left foot cellulitis 2 months ago. [facility] Medical History Chronic headache Surgical History No pertinent past surgical history Family History Other Adopted person Social History Household Members Other:: lives with parents, works for [employer] Housing: House Alcohol intake: current Alcohol intake frequency: 0-2 drinks per day Patient Tobacco Use Status: Never used Tobacco e-Cigarette/Vaping Use: Never Used service: No Current occupational status: employed Current occupation: [employer] Sexual orientation: Straight/Heterosexual Gender identity: Female Cognitive needs: No Hearing needs: No Vision needs: Yes Female Reproductive History Menstrual Age of Menarche: 10 Questionnaire PHQ-9 Over the last 2 weeks, how often have you been bothered by any of the following problems? 1. Little interest or pleasure in doing things: not at all 2. Feeling down, depressed, or hopeless: not at all 3. Trouble falling or staying asleep, or sleeping too much: not at all 4. Feeling tired or having little energy: not at all 5. Poor appetite or overeating: not at all 6. Feeling bad about yourself - or that you are a failure or have let yourself or your family down: not at all 7. Trouble concentrating on things, such as reading the newspaper or watching television: not at all 8. Moving or speaking so slowly that other people could have noticed. Or the opposite - being so fidgety or restless that you have been moving around a lot more than usual: not at all 9. Thoughts that you would be better off or of hurting yourself in some way: not at all Total score: 0 Depression Screening Interpretation: Negative Depression Screening Done: Yes 10645 - PHQ-9 Billing: Yes Source: Developed by Drs. Tim Michel, Sarah Meng, Justice Valerio and colleagues, with an educational raudel from [employer]. Thrive Questionnaire Date Thrive assessed: 06/23/24 I am a: Patient What is your living situation today?: I have a steady place to live Within the past 12 months, did the food you bought not last and you didn't have the money to get more?: Never true Within the past 12 months, did you worry whether your food would run out before you got money to buy more?: Never true Do you have trouble paying for medicines?: No Do you have trouble getting transportation to medical appointments?: No Do you have trouble paying your heating and electricity bill?: No Do you have trouble taking care of your child, family member or friend?: No Do you have trouble with day-to-day activities such as bathing, preparing meals, shopping, managing finances, etc.?: No Are you currently unemployed and looking for a job?: No Are you interested in more education?: No Please select the resources that you would like help with: None Currently or been in a relationship where the following occur: No concerns reported THRIVE Score: 0 AUDIT C Alcohol Use Questionnaire (AUDIT-C) 1. How often do you have a drink containing alcohol?: 2-3 times a week 2. How many drinks containing alcohol do you have on a typical day when you are drinking?: 1 or 2 3. How often do you have six or more drinks on one occasion?: Less than monthly Total Score: 4 CHIQUIS-7 AMB Questionnaire CHIQUIS-7 Date CHIQUIS - 7 assessed: 06/23/24 Feeling nervous, anxious, or on edge: 1 = Several days Not being able to stop or control worryin = Not at all Worrying too much about different things: 1 = Several days Trouble relaxin = Several days Being so restless that it is hard to sit still: 0 = Not at all Becoming easily annoyed or irritable: 1 = Several days Feeling afraid as if something awful might happen: 0 = Not at all Total CHIQUIS-7 score (0-4 normal; 5-9 mild; 10-14 moderate; 15-21 severe): 4 Source: Developed by Drs. Tim Michel, Sarah Meng, Justice Valerio and colleagues, with an educational raudel from [employer]. CHIQUIS-7 Assessment Billing CHIQUIS-7 Assessment Tool: CHIQUIS-7 Assessment 05832 Review of Systems Const All systems reviewed & are unremarkable except as noted in HPI and below Eyes Reports no additional complaints ENT Reports no additional complaints Card Reports no additional complaints Resp Reports no additional complaints GI Reports no additional complaints Reports no additional complaints Physical exam (Primary Care) Vital Signs: Last Vital Signs Temp 98.3 F 06/23/24 14:05 Pulse 94 06/23/24 14:05 Resp 18 06/23/24 14:05 BP 124/80 06/23/24 14:05 Pulse Ox 98 06/23/24 14:05 Oxygen Delivery Method Room Air 06/23/24 14:05 BMI result Body Mass Index 30.9 Tobacco/Smoking Status: Tobacco use Status Tobacco use date assessed 06/23/24 06/23/24 14:11 Patient Tobacco Use Status Never used Tobacco 06/23/24 14:11 e-Cigarette/Vaping Use Never Used 06/23/24 14:11 PHQ-9: PHQ-9 Score PHQ-9: Total score 0 06/23/24 14:11 Depression Screening Interpretation: Negative Thrive Assessment: Date of Thrive Assessment Date Thrive assessed 06/23/24 06/23/24 14:11 Currently or been in a relationship where the following occur: No concerns reported Const General: no acute distress HENMT Head: Yes normal to inspection Resp Effort & Inspection: normal respiratory effort Auscultation: clear to auscultation bilaterally Cardio Rhythm: regular rhythm Heart sounds: S1 normal heart sound present and S2 normal heart sound present Extrem Other: There is erythema with scaling and vesicles in the skin folds between left 5th and 4th toes Coding Level of Care Code Est Pt Level 3 (13609) Diagnoses Tinea pedis, left B35.3 Additional Codes CHIQUIS-7 Assessment Billing - CHIQUIS-7 Assessment Tool: CHIQUIS-7 Assessment 00196 ([id number]) PHQ-9 - 80059 - PHQ-9 Billing: Yes ([id number]) Assessment & Plan Assessment & Plan (1) Tinea pedis, left: Code(s): B35.3 - Tinea pedis Category: Medical Plan: Ketoconazole 400 mg daily for 1 week is prescribed and ketoconazole cream to use at least twice a day and keep the area dry discussed with the patient. Medications: New ketoconazole 400 mg (2 x 200 mg) PO DAILY 14 tabs 0RF ketoconazole 2% 1 appl topical BID 30 grams 0RF
[2024-06-23 14:05] VITALS: BP 124/80; PULSE 94; RESP 18; TEMP 36.8; O2SAT 98; BMI 30.9
== END 2024-06-23 14:59 | disposition home or self-care (01) ==
PROVIDERS: PCP Internal Medicine; Visit Provider Internal Medicine
DX: B35.3 Tinea pedis (principal)

== ENCOUNTER → 2024-06-23 14:03 | Outpatient (BNVA) | payer BC, SELFPAY | PROVIDERS: PCP Internal Medicine; Visit Provider Internal Medicine | DX: B35.3 Tinea pedis (principal) | CPT/HCPCS: 96127 ==

== ENCOUNTER 2024-07-18 12:46 | Outpatient (REF) | payer BC, SELFPAY ==
--- NOTE | ~2024-07-18 | XR_ITS ---
EXAMINATION: X-RAY LUMBAR SPINE 4 VIEWS. CLINICAL INFORMATION: Low back pain. TECHNIQUE: 4 views of the lumbar spine. COMPARISON: None FINDINGS: No acute cortical disruption or malalignment. No lytic or blastic lesions. Rudimentary ribs at T12. XR/XR lumbar spine 4V min IMPRESSION: No acute fracture or listhesis. No gross spondylolisthesis/spondylolysis. Electronically signed by: Lit Rivas MD 07/21/2024 10:40 AM EDT
--- NOTE | ~2024-07-18 | XR_ITS ---
EXAMINATION: XR SACROILIAC JOINTS CLINICAL INFORMATION: Low back pain COMPARISON: None available. TECHNIQUE: 3 views of the sacroiliac joints FINDINGS: Bones and soft tissues are normal. No fracture. Alignment is anatomic. Sacroiliac joint spaces are well-maintained without erosions or surrounding sclerosis. XR/XR sacroiliac joint min 3V IMPRESSION: Normal sacroiliac joints. Electronically signed by: Lit Rivas MD 07/21/2024 10:33 AM EDT
== END 2024-07-18 12:47 | disposition home or self-care (01) ==
LOC: HO.HMGCX 12:46
PROVIDERS: PCP Internal Medicine; Visit Provider Internal Medicine
DX: M54.30 Sciatica, unspecified side (principal)
CPT/HCPCS: 72110; 72202

== ENCOUNTER 2024-07-18 12:46 | Outpatient (AMB) | payer BC, SELFPAY ==
[2024-07-18 12:49] VITALS: BP 120/78; PULSE 93; RESP 18; TEMP 37.1; O2SAT 99; BMI 30.7
--- NOTE | 2024-07-18 12:49 | MHC.PC.OV ---
Vital Signs 07/18/24 12:49 Height 5 ft 2 in Weight 168 lb BMI 30.7 BP 120/78 Blood Pressure Location Lt brachial Position Sitting Respiration 18 Pulse 93 Pulse Source Pulse Oximeter Temp 98.8 F Temp Source Oral Pulse Oximetry (%) 99 Oxygen Delivery Method Room Air Intake Visit Reasons: lower back and hip pain Intake Note: Pt is here today for a sick visit. Pt c/o lower back pain and R hip pain and sometimes her L hip. Pt states that it has been going on for a while now. Pt states that she has xray doen of her back that was ordered by her chiropractor. Allergies No Known Allergies Allergy (Verified 07/18/24 12:49) Medication List - Last Reconciled 07/18/24 by Bing Woods MD ketoconazole 400 mg (2 x 200 mg) PO DAILY ketoconazole 2% 1 appl topical BID levonorgestrel-ethinyl estrad 0.1-20 mg-mcg (Sronyx) 1 tab PO DAILY Tobacco use date assessed: 07/18/24 Dental Screening Dental Screen Date: 06/23/24 HPI lower back and hip pain HPI Details Pt presents complaining of chronic R side lower back pressure like pain radiating to R posterior leg for 2 years getting worse over last 2 months, becoming more constant, usually worse at the end of the day. The pain improves with resting. Patient denies any weakness or numbness in extremities, change in the bowel bladder function. 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 Pt has been going to chiropractor for one year without significant improvement after the treatment. [facility] Medical History Chronic headache Surgical History No pertinent past surgical history Family History Other Adopted person Social History Household Members Other:: lives with parents, works for [employer] Housing: House Alcohol intake: current Alcohol intake frequency: 0-2 drinks per day Patient Tobacco Use Status: Never used Tobacco e-Cigarette/Vaping Use: Never Used service: No Current occupational status: employed Current occupation: [employer] Sexual orientation: Straight/Heterosexual Gender identity: Female Cognitive needs: No Hearing needs: No Vision needs: Yes Female Reproductive History Menstrual Age of Menarche: 10 Questionnaire Thrive Questionnaire Date Thrive assessed: 06/23/24 I am a: Patient What is your living situation today?: I have a steady place to live Within the past 12 months, did the food you bought not last and you didn't have the money to get more?: Never true Within the past 12 months, did you worry whether your food would run out before you got money to buy more?: Never true Do you have trouble paying for medicines?: No Do you have trouble getting transportation to medical appointments?: No Do you have trouble paying your heating and electricity bill?: No Do you have trouble taking care of your child, family member or friend?: No Do you have trouble with day-to-day activities such as bathing, preparing meals, shopping, managing finances, etc.?: No Are you currently unemployed and looking for a job?: No Are you interested in more education?: No Please select the resources that you would like help with: None Currently or been in a relationship where the following occur: No concerns reported THRIVE Score: 0 CHIQUIS-7 AMB Questionnaire CHIQUIS-7 Date CHIQUIS - 7 assessed: 06/23/24 Source: Developed by Drs. Tim Michel, Sarah Meng, Justice Valerio and colleagues, with an educational raduel from [employer]. Review of Systems Const All systems reviewed & are unremarkable except as noted in HPI and below Eyes Reports no additional complaints ENT Reports no additional complaints Card Reports no additional complaints Resp Reports no additional complaints GI Reports no additional complaints Reports no additional complaints Physical exam (Primary Care) Vital Signs: Last Vital Signs Temp 98.8 F 07/18/24 12:49 Pulse 93 07/18/24 12:49 Resp 18 07/18/24 12:49 BP 120/78 07/18/24 12:49 Pulse Ox 99 07/18/24 12:49 Oxygen Delivery Method Room Air 07/18/24 12:49 BMI result Body Mass Index 30.7 Tobacco/Smoking Status: Tobacco use Status Tobacco use date assessed 07/18/24 07/18/24 13:01 Patient Tobacco Use Status Never used Tobacco 07/18/24 12:49 e-Cigarette/Vaping Use Never Used 07/18/24 12:49 Thrive Assessment: Date of Thrive Assessment Date Thrive assessed 06/23/24 07/18/24 12:49 Currently or been in a relationship where the following occur: No concerns reported Const General: no acute distress Eyes General: appearance normal, both eyes and all related structures Resp Effort & Inspection: normal respiratory effort Auscultation: clear to auscultation bilaterally Cardio Rhythm: regular rhythm Heart sounds: S1 normal heart sound present and S2 normal heart sound present GI Inspection: Yes normal to inspection Palpation (GI): Soft to palpation Percussion: Yes normal to percussion Auscultation: normal bowel sounds Back/Spine/Pelvis Other: No spinal paraspinal tenderness, there is reproducible tenderness over right SI joint and right mid buttock, straight leg rising 90 degrees bilaterally, motor strength 5/5 deep tendon reflexes 2+ bilaterally Coding Level of Care Code Est Pt Level 3 (92366) Diagnoses Sciatica M54.30 Assessment & Plan Assessment & Plan (1) Sciatica: Code(s): M54.30 - Sciatica, unspecified side Category: Medical Plan: Obtain x-rays of lumbar spine and SI joints anf refer to physical therapy. Patient declined medication. She will follow-up in 1 month after PT Orders: Orders XR lumbar spine 4V min Today M54.30 - Sciatica, unspecified side PT Evaluation and Treatment Today M54.30 - Sciatica, unspecified side XR sacroiliac joint min 3V Today M54.30 - Sciatica, unspecified side
== END 2024-07-18 14:59 | disposition home or self-care (01) ==
LOC: HO.HMCC 12:46
PROVIDERS: PCP Internal Medicine; Visit Provider Internal Medicine
DX: M54.30 Sciatica, unspecified side (principal)

== ENCOUNTER → 2024-07-18 13:52 | Outpatient (BNV) | payer BC, SELFPAY | PROVIDERS: PCP Internal Medicine; Visit Provider Radiology Diagnostic Radiology | DX: M54.50 Low back pain, unspecified (principal) | CPT/HCPCS: 72110; 72202 ==

== ENCOUNTER 2024-08-27 11:04 | Outpatient (AMB) | payer BC, SELFPAY ==
--- NOTE | 2024-08-27 11:15 | MHC.PC.OV ---
Vital Signs 08/27/24 11:20 Height 5 ft 2 in Weight 164 lb BMI 30.0 BP 108/70 Blood Pressure Location Lt brachial Position Sitting Respiration 18 Pulse 78 Pulse Source Pulse Oximeter Temp 98.7 F Temp Source Oral Pulse Oximetry (%) 99 Oxygen Delivery Method Room Air Intake Visit Reasons: 1 month follow up Intake Note: Pt is here today for 1 month follow up visit. Allergies No Known Allergies Allergy (Verified 08/27/24 11:22) Medication List - Last Reconciled 08/27/24 by Bing Woods MD levonorgestrel-ethinyl estrad 0.1-20 mg-mcg (Sronyx) 1 tab PO DAILY Tobacco use date assessed: 08/27/24 Dental Screening Dental Screen Date: 06/23/24 HPI 1 month follow up HPI Details Patient presents for the follow-up of chronic lower back pain. She has started physical therapy and is feeling better. She has been more careful when lifting heavy objects at work. PFSH Medical History Chronic headache Surgical History No pertinent past surgical history Family History Other Adopted person Social History Household Members Other:: lives with parents, works for [employer] Housing: House Alcohol intake: current Alcohol intake frequency: 0-2 drinks per day Patient Tobacco Use Status: Never used Tobacco e-Cigarette/Vaping Use: Never Used service: No Current occupational status: employed Current occupation: [employer] Sexual orientation: Straight/Heterosexual Gender identity: Female Cognitive needs: No Hearing needs: No Vision needs: Yes Female Reproductive History Menstrual Age of Menarche: 10 Questionnaire Thrive Questionnaire Date Thrive assessed: 06/23/24 I am a: Patient What is your living situation today?: I have a steady place to live Within the past 12 months, did the food you bought not last and you didn't have the money to get more?: Never true Within the past 12 months, did you worry whether your food would run out before you got money to buy more?: Never true Do you have trouble paying for medicines?: No Do you have trouble getting transportation to medical appointments?: No Do you have trouble paying your heating and electricity bill?: No Do you have trouble taking care of your child, family member or friend?: No Do you have trouble with day-to-day activities such as bathing, preparing meals, shopping, managing finances, etc.?: No Are you currently unemployed and looking for a job?: No Are you interested in more education?: No Please select the resources that you would like help with: None Currently or been in a relationship where the following occur: No concerns reported THRIVE Score: 0 CHIQUIS-7 AMB Questionnaire CHIQUIS-7 Date CHIQUIS - 7 assessed: 06/23/24 Source: Developed by Drs. Tim Michel, Sarah Meng, Justice Valerio and colleagues, with an educational raudel from [employer]. Review of Systems Const All systems reviewed & are unremarkable except as noted in HPI and below Eyes Reports no additional complaints ENT Reports no additional complaints Card Reports no additional complaints Resp Reports no additional complaints GI Reports no additional complaints Reports no additional complaints Physical exam (Primary Care) Vital Signs: Last Vital Signs Temp 98.7 F 08/27/24 11:20 Pulse 78 08/27/24 11:20 Resp 18 08/27/24 11:20 BP 108/70 08/27/24 11:20 Pulse Ox 99 08/27/24 11:20 Oxygen Delivery Method Room Air 08/27/24 11:20 BMI result Body Mass Index 30.0 Tobacco/Smoking Status: Tobacco use Status Tobacco use date assessed 08/27/24 08/27/24 11:25 Patient Tobacco Use Status Never used Tobacco 08/27/24 11:15 e-Cigarette/Vaping Use Never Used 08/27/24 11:15 Thrive Assessment: Date of Thrive Assessment Date Thrive assessed 06/23/24 08/27/24 11:15 Currently or been in a relationship where the following occur: No concerns reported Const General: no acute distress HENMT Head: Yes normal to inspection Eyes General: appearance normal, both eyes and all related structures Resp Effort & Inspection: normal respiratory effort Auscultation: clear to auscultation bilaterally Cardio Rhythm: regular rhythm Heart sounds: S1 normal heart sound present and S2 normal heart sound present Back/Spine/Pelvis Thoracic/Lumbar Spine: thoracic and lumbar spine normal to inspection and straight leg raise negative bilaterally Coding Level of Care Code Est Pt Level 3 (58008) Diagnoses Sciatica M54.30 Assessment & Plan Assessment & Plan (1) Sciatica: Code(s): M54.30 - Sciatica, unspecified side Category: Medical Plan: Continue physical therapy and home exercises,
[2024-08-27 11:20] VITALS: BP 108/70; PULSE 78; RESP 18; TEMP 37.1; O2SAT 99
== END 2024-08-27 12:03 | disposition home or self-care (01) ==
LOC: HO.HMCC 11:05
PROVIDERS: PCP Internal Medicine; Visit Provider Internal Medicine
DX: M54.30 Sciatica, unspecified side (principal)

== ENCOUNTER → 2024-08-27 11:04 | Outpatient (BNVA) | payer BC, SELFPAY | PROVIDERS: PCP Internal Medicine; Visit Provider Internal Medicine | DX: Z13.89 Encounter for screening for other disorder (principal) ==

== ENCOUNTER 2025-01-13 07:55 | Outpatient (AMB) | payer OTHER, SELFPAY ==
[2025-01-13 08:03] VITALS: BP 108/66; PULSE 78; RESP 18; TEMP 37.1; O2SAT 99; BMI 30.4
--- NOTE | 2025-01-13 08:03 | MHC.PC.OV ---
Vital Signs 01/13/25 08:03 Height 5 ft 2 in Weight 166 lb BMI 30.4 BP 108/66 Blood Pressure Location Lt brachial Position Sitting Respiration 18 Pulse 78 Pulse Source Pulse Oximeter Temp 98.8 F Temp Source Oral Pulse Oximetry (%) 99 Oxygen Delivery Method Room Air Intake Visit Reasons: annual/PCP not listed on insurance Intake Note: Pt is here today for PE. Allergies No Known Allergies Allergy (Verified 01/13/25 08:05) Medication List - Last Reconciled 01/13/25 by Bing Woods MD ketoconazole 400 mg (2 x 200 mg) PO DAILY levonorgestrel-ethinyl estrad 0.1-20 mg-mcg (Sronyx) 1 tab PO DAILY Tobacco use date assessed: 01/13/25 Dental Screening Dental Screen Date: 06/23/24 HPI annual/PCP not listed on insurance HPI Details Pt presents for PE. She is planning her wedding for next January. Patient complains of recurrent fungal infection between her toes. She works for [employer] and has been wearing tightly fit shoes, patient has been taking ketoconazole for 2nd week with some improvement. She uses [id number] antifungal powder between her toes PFS Medical History (Updated 01/13/25 @ 16:26 by Bing Woods MD) Hyperlipidemia Annual physical exam Chronic headache Surgical History No pertinent past surgical history Family History Other Adopted person Social History Household Members Other:: lives with parents, works for [employer] Housing: House Alcohol intake: current Alcohol intake frequency: 0-2 drinks per day Patient Tobacco Use Status: Never used Tobacco e-Cigarette/Vaping Use: Never Used service: No Current occupational status: employed Current occupation: [employer] Sexual orientation: Straight/Heterosexual Gender identity: Female Cognitive needs: No Hearing needs: No Vision needs: Yes Female Reproductive History Menstrual Age of Menarche: 10 Questionnaire PHQ-9 Over the last 2 weeks, how often have you been bothered by any of the following problems? 1. Little interest or pleasure in doing things: not at all 2. Feeling down, depressed, or hopeless: not at all 3. Trouble falling or staying asleep, or sleeping too much: not at all 4. Feeling tired or having little energy: not at all 5. Poor appetite or overeating: not at all 6. Feeling bad about yourself - or that you are a failure or have let yourself or your family down: not at all 7. Trouble concentrating on things, such as reading the newspaper or watching television: not at all 8. Moving or speaking so slowly that other people could have noticed. Or the opposite - being so fidgety or restless that you have been moving around a lot more than usual: not at all 9. Thoughts that you would be better off or of hurting yourself in some way: not at all Total score: 0 Depression Screening Interpretation: Negative Depression Screening Done: Yes Source: Developed by Drs. Tim Michel, Sarah Meng, Justice Valerio and colleagues, with an educational raudel from [employer]. Thrive Questionnaire Date Thrive assessed: 06/23/24 I am a: Patient What is your living situation today?: I have a steady place to live Within the past 12 months, did the food you bought not last and you didn't have the money to get more?: Never true Within the past 12 months, did you worry whether your food would run out before you got money to buy more?: Never true Do you have trouble paying for medicines?: No Do you have trouble getting transportation to medical appointments?: No Do you have trouble paying your heating and electricity bill?: No Do you have trouble taking care of your child, family member or friend?: No Do you have trouble with day-to-day activities such as bathing, preparing meals, shopping, managing finances, etc.?: No Are you currently unemployed and looking for a job?: No Are you interested in more education?: No Please select the resources that you would like help with: None Currently or been in a relationship where the following occur: No concerns reported THRIVE Score: 0 CHIQUIS-7 AMB Questionnaire CHIQUIS-7 Date CHIQUIS - 7 assessed: 06/23/24 Feeling nervous, anxious, or on edge: 0 = Not at all Not being able to stop or control worryin = Not at all Worrying too much about different things: 0 = Not at all Trouble relaxin = Not at all Being so restless that it is hard to sit still: 0 = Not at all Becoming easily annoyed or irritable: 0 = Not at all Feeling afraid as if something awful might happen: 0 = Not at all Total CHIQUIS-7 score (0-4 normal; 5-9 mild; 10-14 moderate; 15-21 severe): 0 Source: Developed by Drs. Tim Mcihel, Sarah Meng, Justice Valerio and colleagues, with an educational raudel from [employer]. Review of Systems Const All systems reviewed & are unremarkable except as noted in HPI and below Eyes Reports no additional complaints ENT Reports no additional complaints Card Reports no additional complaints Resp Reports no additional complaints GI Reports no additional complaints Reports no additional complaints Physical exam (Primary Care) Vital Signs: Last Vital Signs Temp 98.8 F 01/13/25 08:03 Pulse 78 01/13/25 08:03 Resp 18 01/13/25 08:03 BP 108/66 01/13/25 08:03 Pulse Ox 99 01/13/25 08:03 Oxygen Delivery Method Room Air 01/13/25 08:03 BMI result Body Mass Index 30.4 Tobacco/Smoking Status: Tobacco use Status Tobacco use date assessed 01/13/25 01/13/25 08:08 Patient Tobacco Use Status Never used Tobacco 01/13/25 08:08 e-Cigarette/Vaping Use Never Used 01/13/25 08:08 PHQ-9: PHQ-9 Score PHQ-9: Total score 0 01/13/25 08:18 Depression Screening Interpretation: Negative Thrive Assessment: Date of Thrive Assessment Date Thrive assessed 06/23/24 01/13/25 08:08 Currently or been in a relationship where the following occur: No concerns reported Const General: no acute distress HENMT Head: Yes normal to inspection Ears: hearing grossly normal bilaterally Face and sinus: Yes normal facial exam Throat: Yes posterior oropharynx normal Eyes General: appearance normal, both eyes and all related structures Neck Neck: Yes no lymphadenopathy and Yes supple Resp Effort & Inspection: normal respiratory effort Auscultation: clear to auscultation bilaterally Cardio Rhythm: regular rhythm Heart sounds: S1 normal heart sound present and S2 normal heart sound present GI Inspection: Yes normal to inspection Palpation (GI): Soft to palpation Percussion: Yes normal to percussion Auscultation: normal bowel sounds Extrem Other: skin scaling and erythema between 4th 5th and 3rd 4th toes bilaterally General: Yes no clubbing, cyanosis or edema Coding Level of Care Code Est Pt Prev Care 18-39y(59954) Diagnoses Annual physical exam Z00.00 Assessment & Plan Assessment & Plan (1) Annual physical exam: Code(s): Z00.00 - Encounter for general adult medical examination without abnormal findings Category: Medical Plan: Well-balanced diet regular physical activity discussed with the patient. She is up-to-date with the Pap smear by hall tender. The discussion about aerating her shoes keeping between toes area dry discussed. She will try nystatin powder Medications: New nystatin 1 appl topical BID 60 grams 1RF
== END 2025-01-13 14:43 | disposition home or self-care (01) ==
PROVIDERS: PCP Internal Medicine; Visit Provider Internal Medicine
DX: Z00.00 Encounter for general adult medical examination without abnormal findings (principal)

== ENCOUNTER → 2025-01-13 07:55 | Outpatient (BNVA) | payer OTHER, SELFPAY | PROVIDERS: PCP Internal Medicine; Visit Provider Internal Medicine | DX: Z00.00 Encounter for general adult medical examination without abnormal findings (principal); B35.3 Tinea pedis | CPT/HCPCS: 99395 ==

== ENCOUNTER 2025-03-06 10:27 | Outpatient (AMB) | payer OTHER, SELFPAY ==
--- NOTE | 2025-03-06 10:46 | AM.OFFWIN_ITS ---
Intake Vital Signs 03/06/25 10:47 Height 5 ft 2 in Weight 165 lb BMI 30.2 BP 120/76 Blood Pressure Location Lt brachial Position Sitting Pulse 83 Pulse Source Pulse Oximeter Temp 98.3 F Temp Source Oral Pulse Oximetry (%) 99 Oxygen Delivery Method Room Air Intake Visit Reasons: EP - Stomach Pain (Mid) Intake Note: The EP complains of pain in umbilical areas radiated to epigastrium area and the right flank started this Sunday. The pain has stubbing and cramping nature and it is on and off every hour. Patient Tobacco Use Status: Never used Tobacco Allergies No Known Allergies Allergy (Verified 03/06/25 11:00) Medication List - Last Reconciled 03/06/25 by Debra Padilla MD levonorgestrel-ethinyl estrad 0.1-20 mg-mcg (Sronyx) 1 tab PO DAILY nystatin 1 appl topical BID Do you need a note to return to daycare/school/sports/work: Yes HPI HPI Comments History of Present Illness Details History of Present Illness The patient is a 25-year-old female presenting with abdominal pain. Abdominal pain: - The patient reports generalized abdomi nal pain for the past five days. - The pain occurs two or three times magdalene ly, lasting for one to two hours at a time and improving on its own - Pain is primarily periumbilical with s ome radiation of pain to her right lower abdomen and to the chest - Aggravating factors: Laying down - No associated nausea, vomiting, diarrh ea, or constipation reported. Denies straining with bowel movements. - The patient has regular bowel movement s with no presence of blood. Last bowel movement this morning. - Reports prior history of gas pain but usually resolve after short period. She has no history of similar episodes that persist for an extended period. - Attempts at self-treatment with antaci ds and anti-gas medications (Tums, Pepto-Bismol, Gas-X) have not relieved the symptoms. - The patient denies any notable dietary changes or triggers and has been consuming a healthy diet. - Denies fevers or chills. Denies chest pain or shortness of breath. Reports difficulty breathing due to pain when it occurs - The menstrual period is irregular due to control; she had her last period two months ago. She is currently on OCPs but states possible chance of . - Denies urinary symptoms, vaginal disch arge, vaginal bleeding, or flank pain. - Patient denies any history of alcohol use. - Denies any prior abdominal surgeries Review of Systems - Respiratory: - Cardiovascular: Denies chest pain unre lated to abdominal pain episodes. - Gastrointestinal: Reports abdominal pa in; denies nausea, vomiting, diarrhea, constipation, and blood in stool. - Genitourinary: Denies urinary symptoms ; reports negative test. - Neurological: Denies headache except r elated to menstrual migraines. - Musculoskeletal: Denies any back pain. - Other: Denies fever, chills, and signi ficant weight loss. Constitutional: Negative for fevers, chills Respiratory: Negative for significant shortness of breath Cardiac: Negative for chest pain Gastrointestinal: Reports abdominal pain. Denies nausea, vomiting, blood in stool, blood in emesis, constipation, diarrhea, black tarry stools Genitourinary: Negative for difficulty urinating, dysuria, urinary frequency, urinary urgency, flank pain, hematuria. Negative for vaginal discharge, vaginal pain, abnormal vaginal bleeding Physical Exam General Appearance: Normal appearance, well developed. No acute distress Head: Normocephalic, atraumatic Pulmonary: No respiratory distress. Speaking in full sentences. Abdomen: Normal bowel sounds. Soft with generalized TTP in all quadrants. No point TTP. No gaurding or rigidity. No significant TTP at [place]burneys point. Musculoskeletal: Moving all extremities spontaneously and against gravity Mental Status: Alert and Oriented x 3 Psychiatric: Normal mood. Normal affect. [facility] Medical History (Updated 01/13/25 @ 16:26 by Bing Woods MD) Hyperlipidemia Annual physical exam Chronic headache Surgical History No pertinent past surgical history Family History Other Adopted person Social History Household Members Other:: lives with parents, works for [employer] Housing: House Alcohol intake: current Alcohol intake frequency: 0-2 drinks per day Patient Tobacco Use Status: Never used Tobacco e-Cigarette/Vaping Use: Never Used service: No Current occupational status: employed Current occupation: [employer] Sexual orientation: Straight/Heterosexual Gender identity: Female Cognitive needs: No Hearing needs: No Vision needs: Yes Female Reproductive History Menstrual Age of Menarche: 10 Physical Exam Vital Signs: Last Vital Signs Temp 98.3 F 03/06/25 10:47 Pulse 83 03/06/25 10:47 BP 120/76 03/06/25 10:47 Pulse Ox 99 03/06/25 10:47 Oxygen Delivery Method Room Air 03/06/25 10:47 BMI result Body Mass Index 30.2 Results AMB Test Urine AMB Test Urine Negative Last Edit by Zack Austin MA on 03/06 11:35 AMB Urinalysis, Automated UA Leukoctes 0 De/uL Last Edit by Zack Austin MA on 03/06/25 11:40 UA Nitrite Negative Last Edit by Zack Austin MA on 03/06/25 11:40 UA Urobilinogen 0 mg/dL Last Edit by Zack Austin MA on 03/06/25 11:40 UA Protein 0 mg/dL Last Edit by Zack Austin MA on 03/06/25 11:40 UA pH 6 Last Edit by Zack Austin MA on 03/06/25 11:40 UA Blood 0 Fito/uL Last Edit by Zack Austin MA on 03/06/25 11:40 UA Specific Cornish 1.010 Last Edit by Zack Austin MA on 03/06/25 11:4 0 UA Ketone Negative Last Edit by Zack Austin MA on 03/06/25 11:40 UA Bilirubin 0 mg/dL Last Edit by Zack Austin MA on 03/06/25 11:40 UA Glucose 0 mg/dL Last Edit by Zack Austin MA on 03/06/25 11:40 Assessment & Plan Assessment & Plan (1) Generalized abdominal pain: Code(s): R10.84 - Generalized abdominal pain Plan - Evaluation indicates non-specific abdominal tenderness without guarding. No associated symptoms such as fevers, chills, nausea, vomiting, diarrhea, constipation, black tarry stools, or hematochezia. - UA largely unremarkable. Negative test in office. - Based on occasional radiation of pain into the chest and worsening symptoms with laying down, recommended trial of H2 mayela (Pepcid) for potential G ERD/gastritis and continue simethicone. Low concern for cardiac etiology at this time based on H&P. - Advised maintaining a bland diet and avoiding irritants like greasy, fatty, and acidic foods. Recommended eating small more frequent meals throughout the day rather than large meals. - Discussed monitoring for triggers that may exacerbate symptoms such as certain foods - Advised follow-up with the patient's primary care provider for further evaluation should symptoms persist - Discussed signs of appendicitis and recommended prompt medication evaluation in the ER such as RLQ pain, persistent pain, nasuea/vomiting, and potential fevers. - Educated the patient on red flag symptoms that would require immediate attention, such as persistent severe pain, signs of systemic infection (e.g., f ever), vomiting, or gastrointestinal bleeding. Patient was informed and verbally consented to the use of an ambient scribe for clinic note documentation during the visit. Orders: Orders AMB HCG Urine Test Today R10.84 - Generalized abdominal pain AMB Urinalysis Automated Today R10.84 - Generalized abdominal pain Coding Level of Care Code Est Pt Level 4 (67206) Diagnoses Generalized abdominal pain R10.84
[2025-03-06 10:47] VITALS: BP 120/76; PULSE 83; TEMP 36.8; O2SAT 99; BMI 30.2
== END 2025-03-06 11:57 | disposition home or self-care (01) ==
PROVIDERS: PCP Internal Medicine; Visit Provider Family Medicine
DX: R10.84 Generalized abdominal pain (principal)

== ENCOUNTER → 2025-03-06 10:27 | Outpatient (BNVA) | payer OTHER, SELFPAY | PROVIDERS: PCP Internal Medicine | DX: R10.84 Generalized abdominal pain (principal); R10.817 Generalized abdominal tenderness; Z79.3 Long term (current) use of hormonal contraceptives | CPT/HCPCS: 99212 ==

== ENCOUNTER 2025-04-07 09:01 | Outpatient (AMB) | payer OTHER, SELFPAY ==
[2025-04-07 09:03] VITALS: BP 112/68; BMI 30.6
--- NOTE | 2025-04-07 09:03 | A.OFFVIS_ITS ---
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 History of childhood trauma. Engaged, weds 2025. Currently is sexually active with a partner of 6 years. She denies vaginal itching or irritation. STI screening offered; she declines. Doing well on OCPs. She denies any contraindications to control such as: migraines with aura, history of DVT or pulmonary emboli, high blood pressure, liver disease, thrombolic disorders, Lupus, +DOMENIC, breast cancer, or smoking. She tries to eat healthy and stays active with exercise. Last pap smear 2021, negative. [facility] Medical History Hyperlipidemia Annual physical exam Chronic headache Surgical History No pertinent past surgical history Family History Other Adopted person Social History Household Members Other:: lives with parents, works for [employer] Housing: House Alcohol intake: current Alcohol intake frequency: a few times a month Patient Tobacco Use Status: Never used Tobacco e-Cigarette/Vaping Use: Never Used Trauma History: age 12, SA service: No Current occupational status: employed Current occupation: [employer] Sexual orientation: Straight/Heterosexual Gender identity: Female Cognitive needs: No Hearing needs: No Vision needs: Yes Female Reproductive History Menstrual Age of Menarche: 10 Duration of menses: 3-5 days Date of last menstrual period: 03/24/25 control method: pills Total pregnancies: 0 Date of last pap smear: 02/22/22 History of abnormal pap smear: No History of STI: No Review of Systems Const All systems reviewed & are unremarkable except as noted in HPI and below Reports as per HPI Eyes Reports no additional complaints ENT Reports no additional complaints Card Reports no additional complaints Resp Reports no additional complaints GI Reports as per HPI and Reports no additional complaints Reports as per HPI Musc Reports no additional complaints Skin/Breast Reports as per HPI Neuro Reports no additional complaints Psych Reports no additional complaints Endo Reports no additional complaints Royal/Lymph Reports no additional complaints Aller/Immun Reports no additional complaints Physical Exam Vital Signs: Last Vital Signs BP 112/68 04/07/25 09:03 BMI result Body Mass Index 30.6 Const General: cooperative, healthy appearing, no acute distress, well developed and alert Orientation/consciousness: patient oriented x3 HEENT Head: Yes normal to inspection Eyes General: appearance normal, both eyes and all related structures Neck Neck: Yes normal visual inspection Thyroid: Thyroid normal Chest Chest palpation & inspection: normal inspection of the chest and other (no puckering, dimpling, peau de orange, retraction, discharge, masses) Breast/axilla inspection: normal inspection of the breasts Breast/axilla palpation: normal palpation of the breasts Resp Effort & Inspection: normal respiratory effort GI Inspection: Yes normal to inspection Palpation (GI): Soft to palpation Rectal Exam - Female: deferred General: Yes bladder normal to palpation External Female Exam: normal external appearance and normal appearance of the urethra Speculum Exam - Vagina: normal appearance of the vagina, normal palpation and normal vaginal discharge Speculum Exam - Cervix: normal appearance of the cervix, normal palpation and Other cervical findings present (Bled slightly with Pap) Bimanual exam- vagina & uterus: normal bimanual exam, normal palpation, uterine size normal, bladder normal to palpation, normal palpation and non-tender Bimanual Exam- Adnexa, other: no masses Skin General skin exam: no rashes or lesions noted Rashes: no rashes Neuro General: patient oriented x3 Cognition (Neuro): normal cognition Extrem General: Yes normal to inspection Psych Attitude: cooperative Thought process: Normal thought process present Assessment & Plan Assessment & Plan (1) Encounter for gynecological examination: Code(s): Z01.419 - Encounter for gynecological examination (general) (routine) without abnormal findings Category: Medical Plan Discussed: Current recommendations for pap smears per ASCCP guidelines. Pap obtained. Breast awareness and periodic breast exams. Maintain a healthy lifestyle including a well balanced diet and routine exercise. control hormone use warnings: go to ER if and loss of vision, blindness, severe headache, chest pain or difficulty breathing, severe abdominal pain, or any pain or swelling in an extremity. Libido concerns, trauma healing-recommended speaking to a therapist for past trauma. Patient verbalizes understanding and agrees to the plan of care. She was given opportunity to ask questions and all questions were answered to the best of my ability. 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 This note is constructed using voice recognition software. While every effort has been made to ensure accuracy, medical transcription editor errors may have been included. Orders: Orders Pap Smear Today Z01.419 - Encounter for gynecological examination (general) (routine) without abnormal findings Medications: Refilled levonorgestrel-ethinyl estrad 0.1-20 mg-mcg (Sronyx) Take one pill daily, no placebo week, refill of previous rx 1 tab PO DAILY 112 tabs 4RF Coding Level of Care Code Est Pt Prev Care 18-39y(96846) Diagnoses Encounter for gynecological examination Z01.419
== END 2025-04-07 09:56 | disposition home or self-care (01) ==
LOC: HO.HWS 09:02
PROVIDERS: PCP Internal Medicine; Visit Provider Advanced Practice Midwife
DX: Z01.419 Encounter for gynecological examination (general) (routine) without abnormal findings (principal)
CPT/HCPCS: 99395; 99459

== ENCOUNTER 2025-04-07 09:01 | Outpatient (REF) | payer OTHER, SELFPAY | END 2025-04-07 09:02 | disposition home or self-care (01) | LOC: HO.LNP 09:01 | PROVIDERS: PCP Internal Medicine; Visit Provider Advanced Practice Midwife | DX: Z01.419 Encounter for gynecological examination (general) (routine) without abnormal findings (principal); Z79.3 Long term (current) use of hormonal contraceptives | CPT/HCPCS: 88175 ==